=== PATIENT | male | born 1975 | race Caucasian/White ===

== ENCOUNTER 2018-04-12 05:13 | Day surgery (SDC) | payer OTHER ==
[~2018-04-12] VITALS: Ht 177.8 cm; Wt 90.9 kg
[~2018-04-12 05:13] MED LIST: ACET-1600 PO; OXYC10TA6 PO; TAMS-11 PO
[2018-04-12 06:21] VITALS: BP 136/94
[2018-04-12] MEDS ORDERED: MIDAZOLAM 1 MG/ML, 2ML ONE (07:21)
[2018-04-12] MEDS ORDERED: FENTANYL PF 250 MCG/5ML ONE (07:21)
[2018-04-12] MEDS ORDERED: ROCURONIUM 10MG/ML,5ML ONE (08:36)
[2018-04-12] MEDS ORDERED: DEXAMETHASONE 4 MG/ML, 1ML ONE (08:36)
[2018-04-12] MEDS ORDERED: PROPOFOL 10 MG/ML, 20ML ONE (08:36)
[2018-04-12] MEDS ORDERED: LIDOCAINE-MPF 2% ,5ML ONE (08:36)
[2018-04-12] MEDS ORDERED: ONDANSETRON 2MG/ML, 2ML ONE (08:36)
[2018-04-12] MEDS ORDERED: CIPROFLOXACIN/PMX 400MG/200ML 200 ML ONE (08:36)
[2018-04-12] MEDS ORDERED: OXYcodone 5 MG/5 ML ORAL.SOL UDC ONE (08:40)
[2018-04-12] MEDS ORDERED: MEPERIDINE/PF 25MG/0.5ML IVPush PRN (09:00)
[2018-04-12] MEDS ORDERED: HYDROmorphone 2 MG/ML, 1ML IVPush PRN (09:00)
[2018-04-12] MEDS ORDERED: FENTANYL PF 100 MCG/2ML IV PRN (09:00)
[2018-04-12] MEDS ORDERED: hydrALAzine 20 MG/ML, 1ML IV PRN (09:00)
[2018-04-12] MEDS ORDERED: LORazepam 2 MG/ML, 1ML IVPush PRN (09:00)
[2018-04-12] MEDS ORDERED: ACETAMINOPHEN 325 MG TABLET PO PRN (09:00)
[2018-04-12] MEDS ORDERED: PROMETHAZINE 25 MG/ML, 1ML IV PRN (09:00)
[2018-04-12] MEDS ORDERED: HALOPERIDOL 5 MG/ML IV PRN (09:00)
[2018-04-12] MEDS ORDERED: OXYcodone 5 MG/5 ML ORAL.SOL UDC PO PRN (09:00)
[2018-04-12] MEDS ORDERED: MAGNESIUM HYDROXIDE 8%, 30ML UDC PO PRN (10:30)
[2018-04-12] MEDS ORDERED: GLYCERIN ADULT SUPP PR ONE (10:30)
== END 2018-04-12 13:15 | disposition home or self-care (01) ==
LOC: OUT 05:13 → 4NOR 06:00 → OUT 13:15
PROVIDERS: ATTEND Urology
DX: N20.1 Calculus of ureter (principal)
CPT/HCPCS: 52356; 74018; 76000; C1726; C1769; C2617; J0744; J1100; J2250; J2405; J2704; J3010; J3490; G0378